=== PATIENT | male | born 1995 | race Caucasian/White ===

== ENCOUNTER 2018-11-21 17:27 | Emergency (ER) | payer BC ==
[~2018-11-21] VITALS: Ht 170.2 cm; Wt 72.3 kg
--- NOTE | 2018-11-21 17:45 | NUR ---
FEVER, SORE THROAT, NASAL CONGESTION, COUGH FOR FOUR DAYS. FRIEND RECENTLY DX WITH MONO ON AMOXICILLIN X 3 DAYS W/OUT IMPROVEMENT, CLEAR LUNGS, MOTRIN 1 HOUR AGO
[2018-11-21] MEDS ORDERED: DEXAMETHASONE 4 MG TABLET PO STA (17:58)
[2018-11-21] MEDS ORDERED: DEXAMETHASONE 4 MG TABLET ONE (18:04)
--- NOTE | 2018-11-21 18:09 | NUR ---
MEDICATED PER EMAR/LAB AT BEDSIDE FOR MONO DRAW
[2018-11-21 18:25] VITALS: BP 128/71
[2018-11-21] MEDS ORDERED: AMOX-291 PO (18:28)
== END 2018-11-21 19:33 | disposition home or self-care (01) ==
LOC: ED 18:52
DX: J20.8 Acute bronchitis due to other specified organisms (principal); J02.0 Streptococcal pharyngitis
CPT/HCPCS: 36415; 71046; 86308; 99283; 99284